=== PATIENT | female | born 1940 | race Caucasian/White ===

== ENCOUNTER 2017-08-16 13:15 | Day surgery (SDC) | payer BC ==
[~2017-08-16] VITALS: Ht 162.6 cm; Wt 78.2 kg
[~2017-08-16 13:15] MED LIST: ATACAND 16M16 MG/TAB PO; ATARAX 25MG25 MG/TAB PO; ATARAX25 MG PO; ATIVAN 0.50.5 MG/TAB PO; ATIVAN 1MG T1 MG/TAB PO; CALCIUM 600MG+D1 TAB PO; CALCIUM600 MG PO; FENTANYL 100MCG TOP; FENTANYL 100MCG TP; MORPHINE; NATURAL E400 IU PO; NEXIUM 40MG40 MG PO; NEXIUM40 MG PO; NITROSTAT0.4 MG/TAB SL; PERCOCET 500 MG1 TAB PO; PERCR 7.5 PO; PHENERGAN25 MG RC; POLYETHYLENE GL PO; ROXANOL 20MG20 MG/ML PO; SYNTHROID 0.0.025 MG PO; TIROSINT50 MC1 PO; TOPROL XL 25MG25 MG PO; VIT B-6100 MG PO; VIT B12; VITAMIN B12250 MCG PO; VITAMIN B122500 MCG SL; VITAMIN D1000 IU PO; VITAMIN E-400200 IU PO; ZOFRAN 4MG T4 MG/TAB PO; [UNRECOGNIZED DRUG - CODE] PO; [UNRECOGNIZED DRUG - OTHER]
[2017-08-16] MEDS ORDERED: TOPROL XL 25MG25 MG PO ×2 (13:59)
[2017-08-16] MEDS ORDERED: ATIVAN 1MG T1 MG/TAB PO (14:00)
[2017-08-16] MEDS ORDERED: SYNTHROID0.05 MG/TA PO (14:02)
[2017-08-16] MEDS ORDERED: ATARAX 25MG25 MG/TAB PO (14:02)
[2017-08-16 14:35] VITALS: BP 138/76; PULSE 66; TEMP 97.5
[2017-08-16 17:40] VITALS: BP 154/66; PULSE 71; TEMP 97.8
[2017-08-16 17:55] VITALS: BP 139/71; PULSE 74
[2017-08-16 18:10] VITALS: BP 115/82; PULSE 72
[2017-08-16 20:25] VITALS: BP 124/71; PULSE 64; TEMP 96.5
[2017-08-17 01:30] VITALS: BP 108/54; PULSE 67; TEMP 97.5
[2017-08-17 05:25] VITALS: BP 106/864; PULSE 75; TEMP 97.8
[2017-08-17 09:36] VITALS: BP 98/59; PULSE 65; TEMP 97.5
[2017-08-17 14:20] VITALS: BP 113/55; PULSE 58; TEMP 98.7
[2017-08-17 18:22] VITALS: BP 135/75; PULSE 63; TEMP 98.2
== END 2017-08-17 20:05 | disposition home or self-care (01) ==
LOC: SDCO 13:15 → JCC 17:40 → SDCO 08-17 20:05
DX: K02.9 Dental caries, unspecified (principal); M27.2 Inflammatory conditions of jaws; F41.9 Anxiety disorder, unspecified; F32.9 Major depressive disorder, single episode, unspecified; M60.9 Myositis, unspecified; M79.7 Fibromyalgia; J45.909 Unspecified asthma, uncomplicated; K21.9 Gastro-esophageal reflux disease without esophagitis; R09.02 Hypoxemia; G43.909 Migraine, unspecified, not intractable, without status migrainosus; M19.90 Unspecified osteoarthritis, unspecified site; G47.33 Obstructive sleep apnea (adult) (pediatric); Z87.891 Personal history of nicotine dependence; I25.119 Atherosclerotic heart disease of native coronary artery with unspecified angina pectoris; I10 Essential (primary) hypertension; I34.1 Nonrheumatic mitral (valve) prolapse; Z88.8 Allergy status to other drugs, medicaments and biological substances; Z88.1 Allergy status to other antibiotic agents; Z91.040 Latex allergy status; G89.29 Other chronic pain; Z85.3 Personal history of malignant neoplasm of breast
CPT/HCPCS: OP; J0330; J1100; J1170; J2270; J2405; J2704; J3010; J3370; J7050; J7120

== ENCOUNTER 2018-04-21 12:37 | Day surgery (SDC) | payer BC ==
[~2018-04-21] VITALS: Ht 162.6 cm; Wt 80.9 kg
[~2018-04-21 12:37] MED LIST changes: +SYNTHROID0.05 MG/TA PO
[2018-04-21] MEDS ORDERED: endocet PO (13:13)
[2018-04-21] MEDS ORDERED: ATARAX 25MG25 MG/TAB PO (13:14)
[2018-04-21] MEDS ORDERED: SYNTHROID0.05 MG/TA PO (13:14)
[2018-04-21] MEDS ORDERED: LOPRESSOR 225 MG/TAB PO (13:14)
[2018-04-21] MEDS ORDERED: LEVSIN0.125 M1 PO (13:15)
[2018-04-21] MEDS ORDERED: ZOFRAN 4MG T4 MG/TAB PO (13:15)
[2018-04-21] MEDS ORDERED: MILK OF MA400 MG/52 PO (13:16)
[2018-04-21] MEDS ORDERED: NITROSTAT0.4 MG/TAB SL (13:16)
[2018-04-21] MEDS ORDERED: PROBIOTIC GUMMIES PO (13:16)
[2018-04-21] MEDS ORDERED: D3-5050000 IU PO (13:17)
[2018-04-21] MEDS ORDERED: B COMPLEX & B121 TAB PO (13:17)
[2018-04-21] MEDS ORDERED: TUMS ULTRA ST1000 MG PO (13:18)
[2018-04-21] MEDS ORDERED: SEE COMMENT PO (13:18)
[2018-04-21] MEDS ORDERED: ANTACID500 M1 PO (13:19)
[2018-04-21 13:28] VITALS: BP 139/90; PULSE 70; TEMP 98.4
[2018-04-21 14:25] VITALS: BP 138/92; PULSE 69; TEMP 98.4
[2018-04-21 14:40] VITALS: BP 123/105; PULSE 64
[2018-04-21 14:55] VITALS: BP 130/97; PULSE 65
[2018-04-21 16:12] VITALS: BP 116/75; PULSE 69
== END 2018-04-21 15:35 | disposition home or self-care (01) ==
LOC: SDCO 12:37
DX: K57.30 Diverticulosis of large intestine without perforation or abscess without bleeding (principal); K92.1 Melena; K64.0 First degree hemorrhoids; J45.909 Unspecified asthma, uncomplicated; K21.9 Gastro-esophageal reflux disease without esophagitis; K22.2 Esophageal obstruction; K58.0 Irritable bowel syndrome with diarrhea; K59.00 Constipation, unspecified; K62.89 Other specified diseases of anus and rectum; Z91.040 Latex allergy status; Z90.49 Acquired absence of other specified parts of digestive tract; Z90.710 Acquired absence of both cervix and uterus; Z87.891 Personal history of nicotine dependence; Z86.010 Personal history of colon polyps; Z87.19 Personal history of other diseases of the digestive system; Z80.0 Family history of malignant neoplasm of digestive organs; Z83.79 Family history of other diseases of the digestive system
CPT/HCPCS: J2704; J3010

== ENCOUNTER 2021-06-02 09:28 | Day surgery (SDC) | payer BC ==
[~2021-06-02] VITALS: Ht 160 cm; Wt 84.7 kg
[~2021-06-02 09:28] MED LIST changes: +ANTACID500 M1 PO; +B COMPLEX & B121 TAB PO; +D3-5050000 IU PO; +LEVSIN0.125 M1 PO; +LOPRESSOR 225 MG/TAB PO; +MILK OF MA400 MG/52 PO; +PROBIOTIC GUMMIES PO; +SEE COMMENT PO; +TUMS ULTRA ST1000 MG PO; +endocet PO
[2021-06-02 10:30] VITALS: BP 135/83; PULSE 66; TEMP 98.4
[2021-06-02] MEDS ORDERED: TOPROL XL 25MG25 MG PO (11:07)
[2021-06-02] MEDS ORDERED: ASPIRIN E.C. 8181 MG PO ×2 (11:08→11:09)
[2021-06-02] MEDS ORDERED: VITAMIND3 5000 PO (11:09)
[2021-06-02] MEDS ORDERED: LUTEIN20 M1 PO (11:10)
[2021-06-02] MEDS ORDERED: MAGNESIUM500 MG PO (11:10)
[2021-06-02] MEDS ORDERED: NATURAL E400 IU PO (11:11)
[2021-06-02] MEDS ORDERED: VITAMINC1000TA PO (11:12)
[2021-06-02] MEDS ORDERED: CALCIUM 600 MG1 EAC2 PO (11:12)
[2021-06-02] MEDS ORDERED: THIAMINE I200 MG/2 M IJ (11:13)
[2021-06-02] MEDS ORDERED: ATIVAN 1MG T1 MG/TAB PO (11:13)
[2021-06-02] MEDS ORDERED: CBD CREAM TOP (11:16)
[2021-06-02] MEDS ORDERED: CARAFATE 1GM1 G PO (11:17)
[2021-06-02] MEDS ORDERED: CBD PO (11:17)
[2021-06-02] MEDS ORDERED: ANTACID500 M1 PO (11:18)
[2021-06-02 11:55] VITALS: BP 147/72; PULSE 60; TEMP 97.2
--- NOTE | 2021-06-02 11:55 | NUR ---
Pt to [facility] via cart from [place]. Pt drowsy, but awake. Pt denies pain or nausea. Pt ambulates to recliner with stand by assistance. Warm blanket provided. Coffee and OJ, and muffin given per pt request. Will continue to monitor. Call light within reach.
[2021-06-02 12:10] VITALS: BP 118/61; PULSE 61
--- NOTE | 2021-06-02 12:10 | NUR ---
Pt tolerating food and fluids without difficulties. Denies needs. Call light within reach.
[2021-06-02 12:25] VITALS: BP 122/82; PULSE 62
--- NOTE | 2021-06-02 12:25 | NUR ---
Pt continues to rest. Denies needs. into see pt.
--- NOTE | 2021-06-02 12:30 | NUR ---
IV site discontinued with all parts intact. Discharge instructions reviewed. Pt voices understanding. Pt up to dress. Call light within reach.
--- NOTE | 2021-06-02 12:55 | NUR ---
Pt escorted to private car via wheel chair. Pt accompanied home by her sister.
== END 2021-06-02 12:55 | disposition home or self-care (01) ==
LOC: SDCO 09:28
DX: K21.00 Gastro-esophageal reflux disease with esophagitis, without bleeding (principal); K22.2 Esophageal obstruction; R10.9 Unspecified abdominal pain; K44.9 Diaphragmatic hernia without obstruction or gangrene; R19.5 Other fecal abnormalities; R19.7 Diarrhea, unspecified; K64.1 Second degree hemorrhoids; K57.30 Diverticulosis of large intestine without perforation or abscess without bleeding; K59.00 Constipation, unspecified; I10 Essential (primary) hypertension; I25.119 Atherosclerotic heart disease of native coronary artery with unspecified angina pectoris; I25.2 Old myocardial infarction; J45.909 Unspecified asthma, uncomplicated; G47.33 Obstructive sleep apnea (adult) (pediatric); G43.909 Migraine, unspecified, not intractable, without status migrainosus; M79.7 Fibromyalgia; M19.90 Unspecified osteoarthritis, unspecified site; G89.29 Other chronic pain; F41.9 Anxiety disorder, unspecified; Z86.010 Personal history of colon polyps; Z79.82 Long term (current) use of aspirin; Z79.899 Other long term (current) drug therapy; Z86.73 Personal history of transient ischemic attack (TIA), and cerebral infarction without residual deficits
CPT/HCPCS: C1726; J2704; J7120